=== PATIENT | male | born 1955 | race Hispanic/Latino ===

== ENCOUNTER 2017-05-08 20:27 | Emergency (ER) | payer MEDICAID ==
[2017-05-08 20:35] VITALS: BMI 28.2
[2017-05-08 20:39] VITALS: RESP 18; TEMP 97.9
[2017-05-08 20:58] LABS: ADD MANUAL DIFF? NO
--- NOTE | 2017-05-08 21:07 | ED PDOC ---
Arrival/HPI - General Chief Complaint: Chest Pain Time Seen by Provider: 05/08/17 20:28 Historian: Patient - History of Present Illness Narrative History of Present Illness (Text): 05/08/17 20:40 Zane Boo is a 61 year old male, whose past medical history includes hydrocephalus and DVT, who presents to the Emergency department complaining of chest pain. Patient states he was work earlier today when he began experiencing left-sided chest pain. Patient states chest pain is still present and denies any fever, chills, shortness of breath, nausea, vomiting, diarrhea, urinary symptoms, back pain, neck pain, headache, dizziness, or any other complaints. Time/Duration: Other (today) Symptom Onset: Gradual Symptom Course: Unchanged Activities at Onset: Light Context: Work Past Medical History - Provider Review Nursing Documentation Reviewed: Yes - Cardiac Hx Cardiac Disorders: Yes - Pulmonary Hx Respiratory Disorders: No - Neurological Hx Neurological Disorder: No - HEENT Hx HEENT Disorder: No - Renal Hx Renal Disorder: No - Endocrine/Metabolic Hx Endocrine Disorders: No - Hematological/Oncological Hx Blood Disorders: No - Integumentary Hx Dermatological Disorder: Yes (RIGHT LEG DVT) - Musculoskeletal/Rheumatological Hx Musculoskeletal Disorders: Yes (DVT RIGHT CALF) Hx Falls: No - Gastrointestinal Hx Gastrointestinal Disorders: Yes (HEMORRHOIDS WITH HEMORRHOIDECTOMY) - Genitourinary/Gynecological Hx Genitourinary Disorders: No (HYDROCOELE) - Psychiatric Hx Psychophysiologic Disorder: Yes (OCCASIONALLY DRINKS) Hx Anxiety: No Hx Substance Use: No - Surgical History Other/Comment: colonoscopy-POLYPS REMOVED - Anesthesia Hx Anesthesia Reactions: No Hx Malignant Hyperthermia: No - Suicidal Assessment Feels Threatened In Home Enviroment: No Family/Social History - Physician Review Nursing Documentation Reviewed: Yes Family/Social History: No Known Family HX Smoking Status: Never Smoked Hx Alcohol Use: No Hx Substance Use: No Allergies/Home Meds Allergies/Adverse Reactions: Allergies No Known Allergies Allergy (Verified 05/08/17 21:03) Home Medications: Home Meds Medication Instructions Recorded Confirmed Folic Acid 1 mg PO DAILY 01/21/17 01/23/17 Warfarin [Coumadin] 7.5 mg PO DAILY 01/21/17 01/23/17 Review of Systems - Physician Review All systems were reviewed & negative as marked: Yes - Review of Systems Constitutional: Normal. absent: Fevers Eyes: Normal ENT: Normal Respiratory: Normal. absent: SOB, Cough Cardiovascular: Chest Pain Gastrointestinal: Normal. absent: Abdominal Pain, Diarrhea, Nausea, Vomiting Genitourinary Male: Normal. absent: Dysuria, Frequency, Hematuria, Urinary Output Changes Musculoskeletal: Normal. absent: Back Pain, Neck Pain Skin: Normal. absent: Rash Neurological: Normal. absent: Headache, Dizziness Endocrine: Normal Hemo/Lymphatic: Normal Psychiatric: Normal Physical Exam Vital Signs Reviewed: Yes Vital Signs Temp Pulse Resp BP Pulse Ox 05/08/17 23:48 62 18 115/81 97 05/08/17 20:35 97.9 F 64 18 104/56 L 99 Temperature: Afebrile Blood Pressure: Normal Pulse: Regular Respiratory Rate: Normal Appearance: Positive for: Well-Appearing, Non-Toxic, Comfortable Pain Distress: None Mental Status: Positive for: Alert and Oriented X 3 - Systems Exam Head: Present: Atraumatic, Normocephalic Pupils: Present: PERRL Extroacular Muscles: Present: EOMI Conjunctiva: Present: Normal Mouth: Present: Moist Mucous Membranes Neck: Present: Normal Range of Motion Respiratory/Chest: Present: Clear to Auscultation, Good Air Exchange. No: Respiratory Distress, Accessory Muscle Use Cardiovascular: Present: Regular Rate and Rhythm, Normal S1, S2. No: Murmurs Abdomen: Present: Normal Bowel Sounds. No: Tenderness, Distention, Peritoneal Signs Back: Present: Normal Inspection Upper Extremity: Present: Normal Inspection. No: Cyanosis, Edema Lower Extremity: Present: Normal Inspection. No: Edema Neurological: Present: GCS=15, CN II-XII Intact, Speech Normal Skin: Present: Warm, Dry, Normal Color. No: Rashes Psychiatric: Present: Alert, Oriented x 3, Normal Insight, Normal Concentration Medical Decision Making ED Course and Treatment: 05/08/17 20:40 Impression: 61 year old male complaining of left-sided chest pain. Plan: -- EKG -- Chest X-ray -- Labs, cardiac enzymes, D-dimer -- Urinalysis -- Reassess and disposition Prior Visits: Notes and results from previous visits were reviewed. On 01/21/2017, pt was seen in the Emergency department s/p fall with light- headedness. Pt was admitted to the hospital for further evaluation. Progress Notes: Reviewed EKG, NSR at [address]-segment elevations or depressions, no T-wave inversions, normal intervals. 05/08/17 23:06 Reviewed radiology, Chest X-ray shows no active disease. 05/09/17 00:00 On re-evaluation, the patient feels better and is in no acute distress. I have discussed the results and plan with the patient, who expresses understanding. Patient in agreement with plan to discharged home. Patient is stable for discharge. Patient was instructed to follow up with physician/clinic in 1-2 days or return if symptoms worsen or new concerning symptoms arise. - Lab Interpretations Lab Results: 05/08/17 20:47 05/08/17 20:47 Lab Results 05/08/17 20:47: Sodium 135, Potassium 4.5, Chloride 102, Carbon Dioxide 27, Anion Gap 11, BUN 28 H, Creatinine 1.4, Est GFR ( Amer) > 60, Est GFR ( Non-Af Amer) 52, Random Glucose 106, Calcium 8.6, Magnesium 2.1, Total Bilirubin 0.7, AST 44, ALT 52, Alkaline Phosphatase 65, Lactate Dehydrogenase 426, Total Creatine Kinase 472 H, CK-MB (CK-2) 5.0 H, CK-MB (CK-2) % 1.1 L, Troponin I < 0.01, Total Protein 6.8, Albumin 3.8, Globulin 3.0, Albumin/ Globulin Ratio 1.3 05/08/17 20:47: PT 31.9 H*, INR 2.95 H, APTT 38.8 H, D-Dimer, Quantitative 0.19 05/08/17 20:47: WBC 7.8, RBC 4.87, Hgb 14.9, Hct 43.7, MCV 89.7, MCH 30.6, MCHC 34.1, RDW 13.3, Plt Count 233, MPV 8.8, Gran % 61.1, Lymph % (Auto) 24.6, [place] % (Auto) 10.1 H, Eos % (Auto) 3.6, Baso % (Auto) 0.6, Gran # 4.78, Lymph # 1.9, [place] # 0.8 H, Eos # 0.3, Baso # 0.05 I have reviewed the lab results: Yes - RAD Interpretation Radiology Orders: 05/08/17 20:41 CHEST PORTABLE [RAD] Stat Honest [employer] Member: ED Physician - EKG Interpretation Interpreted by ED Physician: Yes Type: 12 lead EKG - Scribe Statement The provider has reviewed the documentation as recorded by the Lorneibelton Neal All medical record entries made by the Lorneibe were at my direction and personally dictated by me. I have reviewed the chart and agree that the record accurately reflects my personal performance of the history, physical exam, medical decision making, and the department course for this patient. I have also personally directed, reviewed, and agree with the discharge instructions and disposition. Disposition/Present on Arrival - Present on Arrival Any Indicators Present on Arrival: No History of DVT/PE: No History of Uncontrolled Diabetes: No Urinary Catheter: No History of Decub. Ulcer: No History Surgical Site Infection Following: None - Disposition Have Diagnosis and Disposition been Completed?: Yes Diagnosis: Chest pain Disposition: HOME/ ROUTINE Disposition Time: 00:00 Condition: GOOD Discharge Instructions (ExitCare): Chest Pain (ED) Referrals: Ty Gutierrez, DO [Primary Care Provider] - Follow up with primary
[2017-05-08 21:10] LABS: BASO # 0.05 K/mm3 (0.0-2.0); BASO % 0.6 % (0.0-3.0); EOS # 0.3 (0.0-0.7); EOS % 3.6 % (1.5-5.0); GRAN # 4.78 (1.4-6.5); GRAN % 61.1 % (50.0-68.0); HEMATOCRIT 43.7 % (42.0-52.0); LYMPH # 1.9 (1.2-3.4); LYMPH % 24.6 % (22.0-35.0); MEAN CELL VOLUME 89.7 fL (80.0-105.0); MEAN CORPUSCULAR HEMOGLOBIN 30.6 pg (25.0-35.0); MEAN CORPUSCULAR HGB CONC 34.1 g/dl (31.0-37.0); MEAN PLATELET VOLUME 8.8 fl (7.0-11.0); MONO # 0.8 (0.1-0.6); MONO % 10.1 % (1.0-6.0); PLATELET COUNT 233 10^3/uL (120.0-450.0); RED CELL DISTRIBUTION WIDTH 13.3 % (11.5-14.5); WHITE BLOOD COUNT 7.8 10^3/ul (4.5-11.0)
[2017-05-08 21:13] LABS: ALB/GLOB RATIO 1.3 (1.1-1.8); ALKALINE PHOSPHATASE 65 U/L (38-133); ALT/SGPT 52 U/L (7-56); AST/SGOT 44 U/L (15-59); BILIRUBIN,TOTAL 0.7 mg/dL (0.2-1.3); BLOOD UREA NITROGEN 28 mg/dL (7-21); CALCIUM 8.6 mg/dL (8.4-10.5); CARBON DIOXIDE 27 mmol/L (21-33); CHLORIDE 102 mmol/L (98-107); GFR AFRICAN-AMERICAN > 60; GLUCOSE,RANDOM 106 mg/dL (70-110); MAGNESIUM 2.1 mg/dL (1.7-2.2); POTASSIUM 4.5 mmol/L (3.6-5.0); SODIUM 135 mmol/L (132-148); TOTAL PROTEIN 6.8 g/dL (5.8-8.3)
[2017-05-08 21:19] LABS: INR 2.95 (0.93-1.08); PARTIAL THROMBOPLASTIN TIME 38.8 Seconds (23.7-30.8)
[2017-05-08 21:32] LABS: D DIMER 0.19 mg/L FEU (0-0.50)
[2017-05-08 21:39] LABS: TROPONIN I < 0.01 ng/mL
[2017-05-08 23:49] VITALS: BP 115/81; PULSE 62; O2SAT 97
--- NOTE | 2017-05-09 08:15 | RAD ---
HISTORY: Chest pain COMPARISON: 01/21/2017 FINDINGS: LUNGS: The lungs are clear. PLEURA: No significant pleural effusion identified, no pneumothorax apparent. CARDIOVASCULAR: Normal. OSSEOUS STRUCTURES: No significant abnormalities. VISUALIZED UPPER ABDOMEN: Normal. OTHER FINDINGS: None. IMPRESSION: No active pulmonary disease.
--- NOTE | 2017-05-09 10:42 | CARD ---
APPROVED REPORT EKG Measurement Heart [id number] <Conclusion> Normal sinus rhythm Normal ECG No change
== END 2017-05-08 23:59 | disposition home or self-care (01) ==
LOC: ED 20:27
DX: R07.9 Chest pain, unspecified (principal)

== ENCOUNTER 2017-09-02 14:01 | Emergency (ER) | payer SELFPAY ==
[2017-09-02 14:09] VITALS: BMI 26.0
[2017-09-02 14:10] VITALS: RESP 18; TEMP 97.9
[2017-09-02] MEDS ORDERED: Sodium Chloride 0.9% 1,000 ML IV STA (15:02)
--- NOTE | 2017-09-02 15:09 | ED PDOC ---
Arrival/HPI - General Historian: Patient - History of Present Illness Time/Duration: < week Symptom Onset: Sudden Symptom Course: Improving Quality: Other (lightheadedness ) Severity Level: Moderate Activities at Onset: Light Context: Walking <KANE WIN - Last Filed: 09/02/17 19:30> <Iván Blanco - Last Filed: 09/02/17 20:28> - General Chief Complaint: Dizziness/Lightheaded Time Seen by Provider: 09/02/17 14:57 - History of Present Illness Narrative History of Present Illness (Text): 09/02/17 15:03 61yo M with PMH Hydrocephalus and RLE DVT (2015, on Coumadin) who presents to emergency department s/p dizziness and fall with hip pain. Pt is unsure if this occurred yesterday or the day before, but he states that he was walking, felt dizzy and felt onto this R side. Denies LOC or head trauma. Pt states he 's had a prior episode similar to this but cannot recall when it was exactly. pt states his hydrocephalus is congenital, but he doesn't have any shunts for it yet. Pt also denies fevers, chills, n/v/d, chest pain, palpitations, headaches, changes in vision/hearing, or neck pain. PMD: Dr. Gutierrez (KANE WIN) Past Medical History - Provider Review Nursing Documentation Reviewed: Yes - Infectious Disease Hx of Infectious Diseases: None - Cardiac Hx Cardiac Disorders: Yes Other/Comment: R leg DVT - Pulmonary Hx Respiratory Disorders: No - Neurological Hx Dizziness: Yes (w/ pre-syncope) Other/Comment: hydrocephalus w/o shunt - HEENT Hx HEENT Disorder: No - Renal Hx Renal Disorder: No - Endocrine/Metabolic Hx Endocrine Disorders: No - Hematological/Oncological Hx Blood Disorders: No - Musculoskeletal/Rheumatological Hx Musculoskeletal Disorders: Yes Hx Falls: Yes - Gastrointestinal Hx Gastrointestinal Disorders: Yes (HEMORRHOIDS WITH HEMORRHOIDECTOMY) - Genitourinary/Gynecological Hx Genitourinary Disorders: Yes (HYDROCOELE) - Psychiatric Hx Psychophysiologic Disorder: Yes (OCCASIONALLY DRINKS) Hx Anxiety: No Hx Substance Use: No - Surgical History Other/Comment: colonoscopy-POLYPS REMOVED - Anesthesia Hx Anesthesia: Yes Hx Anesthesia Reactions: No Hx Malignant Hyperthermia: No - Suicidal Assessment Feels Threatened In Home Enviroment: No <QUIRNIOKANE ARRIETA - Last Filed: 09/02/17 19:30> Family/Social History - Physician Review Nursing Documentation Reviewed: Yes Family/Social History: No Known Family HX Smoking Status: Never Smoked Hx Alcohol Use: Yes (occasional ) Hx Substance Use: No <QUIRINOKANE SOLORZANO - Last Filed: 09/02/17 19:30> Allergies/Home Meds <QUIRINOKANE SOLORZANO - Last Filed: 09/02/17 19:30> <Iván Blanco - Last Filed: 09/02/17 20:28> Allergies/Adverse Reactions: Allergies No Known Allergies Allergy (Verified 05/08/17 21:03) Home Medications: Home Meds Medication Instructions Recorded Confirmed Folic Acid 800 mg PO DAILY 01/21/17 09/02/17 Warfarin [Coumadin] 4 mg PO DAILY 01/21/17 09/02/17 Lisinopril [Zestril] 40 mg PO DAILY 09/02/17 09/02/17 Review of Systems - Physician Review All systems were reviewed & negative as marked: Yes - Review of Systems Constitutional: Normal. absent: Fatigue, Weight Change, Fevers Eyes: Normal. absent: Vision Changes ENT: Normal. absent: Hearing Changes, Tinnitus Respiratory: absent: SOB, Cough Cardiovascular: absent: Chest Pain, Palpitations, Edema, Calf Pain, Orthopnea, Syncope Gastrointestinal: absent: Abdominal Pain Genitourinary Male: absent: Dysuria, Frequency, Hematuria Musculoskeletal: Other (R hip pain) Neurological: Dizziness. absent: Headache, Focal Weakness, Gait Changes, Speech Changes, Facial Droop, Disequilibrium, Seizure <QUIRINOKANE SOLORZANO - Last Filed: 09/02/17 19:30> Physical Exam Vital Signs Reviewed: Yes Blood Pressure: Hypotensive Respiratory Rate: Normal Appearance: Positive for: Well-Appearing Pain Distress: None Mental Status: Positive for: Alert and Oriented X 3 - Systems Exam Head: Present: Atraumatic, Other (wide forehead ) Pupils: Present: PERRL Extroacular Muscles: Present: EOMI Conjunctiva: Present: Normal Mouth: Present: Moist Mucous Membranes Neck: Present: Normal Range of Motion. No: Meningeal Signs, MIDLINE TENDERNESS Respiratory/Chest: Present: Clear to Auscultation, Good Air Exchange. No: Respiratory Distress, Accessory Muscle Use, Wheezes Cardiovascular: Present: Regular Rate and Rhythm, Normal S1, S2. No: Murmurs Abdomen: Present: Normal Bowel Sounds. No: Tenderness, Distention Back: Present: Normal Inspection. No: CVA Tenderness, Midline Tenderness Upper Extremity: Present: Normal Inspection, Normal ROM, Neurovascularly Intact. No: Edema, Tenderness, Temperature Abnormalties Lower Extremity: Present: Normal Inspection, Normal ROM, Tenderness (R hip, mild ), Neurovascularly Intact. No: Edema, CALF TENDERNESS, Temperature Abnormalties Neurological: Present: Speech Normal, Motor Func Grossly Intact, Normal Sensory Function. No: Gait Normal (moderate ataxia) Skin: Present: Warm, Dry Psychiatric: Present: Alert, Oriented x 3, Other (memory loss and mild confusion ) <KANE WIN - Last Filed: 09/02/17 19:30> Vital Signs Temp Pulse Resp BP Pulse Ox 09/02/17 14:09 97.9 F 85 18 96/61 L 96 Medical Decision Making Reassessment Condition: Re-examined, Improved - Critical Care Critical Care Minutes: 30 minutes - Lab Interpretations I have reviewed the lab results: Yes <KANE WIN - Last Filed: 09/02/17 19:30> Reassessment Condition: Re-examined, Improved - Critical Care Critical Care Minutes: 30 minutes - Lab Interpretations I have reviewed the lab results: Yes <Iván Blanco - Last Filed: 09/02/17 20:28> ED Course and Treatment: 09/02/17 15:22 Impression: 61yo M PMH hydrocephalus and DVT presenting s/p pre-syncope and fall with R hip pain Plan: - Reassess and disposition - CT head - Hip XRay - Labs - UA - 1L NS bolus Progress Notes: Orthostatic VS done by resident: Laying down: BP 92/51, HR 66 Sitting: BP 93/51, HR 75 Standing: BP 68/48, HR 105 09/02/17 15:24 EKG: Ordered, reviewed, and independently interpreted the EKG. Rate : 65 BPM Rhythm : NSR Interpretation : No ST-segment elevations or depressions, no T-wave inversions, normal intervals. 09/02/17 15:27 From January admission for similar symptoms: - carotid and vertebral doppler - bilateral 20-39% proximal ICA stenosis and antegrade flow in both vetebral arteries. No significant changes from prior year. - Head CT - Severe hydrocephalus - lateral and 3rd ventricles. 4th ventricle normal in zise. 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 No mass effect. - Brain MRI - L frontal sinusitis. Moderate to severe hydrocephalus lateral and 3rd ventricles. Periventricular hyperintense T2 and FLAIR represents edema and chronic white ischemic changes - Echo with normal EF and no valvular changes - Pt was supposed to follow up Dr. Lcokwood for elective shunt, but pt cannot recall if he did or not 09/02/17 16:[address] Gutierrez, states pt appears is at baseline. Currently awaiting CT Head results. If CT Head shows no changes, pt will follow up with Dr. Gutierrez as an outpatient. 09/02/17 17:01 reassessment: s/p 1L NS bolus; BP 103/71, HR 61. 09/02/17 18:02 Radiographs of the pelvis and bilateral hips Creator : Javier Duncan MD IMPRESSION: Degenerate changes seen the bilateral sacroiliac and hip joints without acute fracture throughout either hip joint or the pelvic ring. No dislocation. 09/02/17 18:39 CT HEAD WITHOUT CONTRAST Creator : Iván Wright FINDINGS: HEMORRHAGE: No intracranial hemorrhage. BRAIN: Again seen is severe hydrocephalus associated with partial effacement of the sulci. No evidence of significant midline shift. VENTRICLES: The lateral and 3rd ventricles are markedly dilated suggestive of hydrocephalus. . The 4th ventricle is normal in size. CALVARIUM: Unremarkable. PARANASAL SINUSES: Unremarkable as visualized. No significant inflammatory changes. MASTOID AIR CELLS: Unremarkable as visualized. No inflammatory changes. OTHER FINDINGS: None IMPRESSION: Re- demonstration of moderate to severe obstructive/noncommunicating hydrocephalus involving the lateral and 3rd ventricle. The 4th ventricle is normal in size. No evidence of acute intracranial hemorrhage or significant midline shift. 09/02/17 19:12 Reassessment: pt was walked with resident, and was ambulating steadily without assistance. (KANE WIN) A 61 year old male presents for evaluation after fall. Patient complaining of dizziness and right hip pain. In agreement with resident note, which includes further HPI details. Patient was seen and evaluated with resident, came up with plan and treatment together. discused case with dr. Gutierrez who agrees with plan, pt was given gentle IV hydration and shows no significant progression of his hydrocephalus requiring urgent N/S evaluation. 09/02/17 20:27 (Iván Blanco) - Lab Interpretations Lab Results: 09/02/17 15:00 09/02/17 15:00 Lab Results 09/02/17 15:00: Sodium 137, Potassium 4.2, Chloride 102, Carbon Dioxide 28, Anion Gap 11, BUN 29 H, Creatinine 1.0, Est GFR ( Amer) > 60, Est GFR ( Non-Af Amer) > 60, Random Glucose 92, Calcium 8.7, Total Bilirubin 0.9, AST 42, ALT 48, Alkaline Phosphatase 55, Total Protein 6.0, Albumin 3.5, Globulin 2.6, Albumin/Globulin Ratio 1.3 09/02/17 15:00: PT 32.9 H*, INR 3.05 H 09/02/17 15:00: WBC 8.8, RBC 4.51, Hgb 13.6 L, Hct 39.9 L, MCV 88.5, MCH 30.2, MCHC 34.1, RDW 13.5, Plt Count 214, MPV 8.7, Gran % 70.8 H, Lymph % (Auto) 15.4 L, [place] % (Auto) 11.9 H, Eos % (Auto) 1.7, Baso % (Auto) 0.2, Gran # 6.26, Lymph # 1.4, [place] # 1.1 H, Eos # 0.2, Baso # 0.02 - RAD Interpretation Radiology Orders: 09/02/17 14:34 Hip Bi with Pelvis Fall Protocol [HIP MIN 2V W/ PELVIS CIRILO] [RAD] Stat 09/02/17 15:01 HEAD W/O CONTRAST [CT] Stat - Medication Orders Current Medication Orders: Discontinued Medications Sodium Chloride (Sodium Chloride 0.9%) 1,000 mls @ 999 mls/hr IV .Q1H1M STA Stop: 09/02/17 16:02 Last Admin: 09/02/17 15:09 Dose: 999 mls/hr eMAR Start Stop Document 09/02/17 15:09 EQ (Rec: 09/02/17 15:09 EQ [facility] [id number] Intravenous Solution Start Date 09/02/17 Start Time 15:09 <KANE WIN - Last Filed: 09/02/17 19:30> - PA / [employer] / Resident Statement / has reviewed & agrees with the documentation as recorded. MD/DO has examined the patient and agrees with the treatment plan. - Scribe Statement The provider has reviewed the documentation as recorded by the Scribe <Iván Blanco - Last Filed: 09/02/17 20:28> - Scribe Statement Margarita Young Provider Scribe Attestation: All medical record entries made by the Scribe were at my direction and personally dictated by me. I have reviewed the chart and agree that the record accurately reflects my personal performance of the history, physical exam, medical decision making, and the department course for this patient. I have also personally directed, reviewed, and agree with the discharge instructions and disposition. (Iván Blanco) Disposition/Present on Arrival - Present on Arrival Any Indicators Present on Arrival: No History of DVT/PE: Yes History of Uncontrolled Diabetes: No Urinary Catheter: No History of Decub. Ulcer: No History Surgical Site Infection Following: None - Disposition Have Diagnosis and Disposition been Completed?: Yes Disposition Time: 19:17 Patient Plan: Discharge <KANE WIN - Last Filed: 09/02/17 19:30> - Present on Arrival Any Indicators Present on Arrival: No History of DVT/PE: Yes History of Uncontrolled Diabetes: No Urinary Catheter: No History of Decub. Ulcer: No - Disposition Have Diagnosis and Disposition been Completed?: Yes Patient Plan: Discharge <Iván Blanco - Last Filed: 09/02/17 20:28> - Disposition Diagnosis: Near syncope, Hydrocephalus Disposition: HOME/ ROUTINE Patient Problems: Current Active Problems Problem Status Onset Contusion of hip, right Acute Hydrocephalus Acute Near syncope Acute Condition: GOOD Discharge Instructions (ExitCare): Near Syncope (ED) Additional Instructions: - please take the pain meds as prescribed when needed - continue home meds - when getting up, take your time and slowly sit up first, then stand up. If at anytime you feel dizzy, please sit down to avoid falling - please follow up with your PMD - if at anytime you feel dizzy, numbness/tingling, weakness, facial paralysis or droop, slurring of speech or experience any changes in vision/hearing, please return to emergency department for workup Prescriptions: Ibuprofen [Motrin] 400 mg PO Q6 PRN #12 tab PRN Reason: Pain, Mild (1-3) Referrals: Ty Gutierrez DO [Primary Care Provider] - Follow up with primary Forms: [employer] (Lebanese)
[2017-09-02 15:16] LABS: BASO # 0.02 K/mm3 (0.0-2.0); BASO % 0.2 % (0.0-3.0); EOS # 0.2 (0.0-0.7); EOS % 1.7 % (1.5-5.0); GRAN # 6.26 (1.4-6.5); GRAN % 70.8 % (50.0-68.0); HEMATOCRIT 39.9 % (42.0-52.0); LYMPH # 1.4 (1.2-3.4); LYMPH % 15.4 % (22.0-35.0); MEAN CELL VOLUME 88.5 fl (80.0-105.0); MEAN CORPUSCULAR HEMOGLOBIN 30.2 pg (25.0-35.0); MEAN CORPUSCULAR HGB CONC 34.1 g/dl (31.0-37.0); MEAN PLATELET VOLUME 8.7 fl (7.0-11.0); MONO # 1.1 (0.1-0.6); MONO % 11.9 % (1.0-6.0); RED CELL DISTRIBUTION WIDTH 13.5 % (11.5-14.5); WHITE BLOOD COUNT 8.8 10^3/ul (4.5-11.0)
[2017-09-02 15:25] LABS: INR 3.05 (0.93-1.08)
[2017-09-02 15:35] LABS: ALB/GLOB RATIO 1.3 (1.1-1.8); ALKALINE PHOSPHATASE 55 U/L (38-126); ALT/SGPT 48 U/L (7-56); AST/SGOT 42 U/L (17-59); BILIRUBIN,TOTAL 0.9 mg/dL (0.2-1.3); BLOOD UREA NITROGEN 29 mg/dL (7-21); CALCIUM 8.7 mg/dL (8.4-10.5); CARBON DIOXIDE 28 mmol/L (21-33); CHLORIDE 102 mmol/L (98-107); GFR AFRICAN-AMERICAN > 60; GLUCOSE,RANDOM 92 mg/dL (70-110); POTASSIUM 4.2 mmol/L (3.6-5.0); SODIUM 137 mmol/L (132-148)
--- NOTE | 2017-09-02 16:55 | RAD ---
PROCEDURE: Radiographs of the pelvis and bilateral hips HISTORY: s/p fall COMPARISON: None. FINDINGS: BONES: No fracture of the left or right hip is appreciated or of the pelvic ring in general. No suspicious lytic or blastic change. JOINTS: Degenerate changes seen the bilateral sacroiliac and hip joints. No dislocation or subluxation bilaterally. Pubic symphysis: Unremarkable. SOFT TISSUES: Incidental note is made calcifications at the right hemiscrotum. OTHER FINDINGS: None. IMPRESSION: Degenerate changes seen the bilateral sacroiliac and hip joints without acute fracture throughout either hip joint or the pelvic ring. No dislocation.
--- NOTE | 2017-09-02 18:25 | CT ---
PROCEDURE: CT HEAD WITHOUT CONTRAST. HISTORY: pre-syncope, s/p fall COMPARISON: Comparison is made to the previous study dated 01/21/2017 TECHNIQUE: Axial computed tomography images were obtained through the head/brain without intravenous contrast. Radiation dose: Total exam DLP = 930.49 mGy-cm. This CT exam was performed using one or more of the following dose reduction techniques: Automated exposure control, adjustment of the mA and/or kV according to patient size, and/or use of iterative reconstruction technique. FINDINGS: HEMORRHAGE: No intracranial hemorrhage. BRAIN: Again seen is severe hydrocephalus associated with partial effacement of the sulci. No evidence of significant midline shift. VENTRICLES: The lateral and 3rd ventricles are markedly dilated suggestive of hydrocephalus. . The 4th ventricle is normal in size. CALVARIUM: Unremarkable. PARANASAL SINUSES: Unremarkable as visualized. No significant inflammatory changes. MASTOID AIR CELLS: Unremarkable as visualized. No inflammatory changes. OTHER FINDINGS: None IMPRESSION: Re- demonstration of moderate to severe obstructive/noncommunicating hydrocephalus involving the lateral and 3rd ventricle. The 4th ventricle is normal in size. No evidence of acute intracranial hemorrhage or significant midline shift.
[2017-09-02 21:30] VITALS: BP 118/74; PULSE 61; O2SAT 99
--- NOTE | 2017-09-03 09:44 | CARD ---
APPROVED REPORT EKG Measurement Heart [id number] <Conclusion> Normal sinus rhythm Normal ECG
== END 2017-09-02 19:55 | disposition home or self-care (01) ==
LOC: ED 14:01
DX: R55 Syncope and collapse (principal); G91.9 Hydrocephalus, unspecified
CPT/HCPCS: 70450; 73521; 80053; 85025; 85610; 93005; 99285; J7040

== ENCOUNTER 2017-09-16 09:52 | Emergency (ER) | payer OTHER ==
[2017-09-16 09:52] VITALS: BMI 26.0
[2017-09-16 10:30] VITALS: RESP 16; TEMP 98.6; O2SAT 97
--- NOTE | 2017-09-16 10:57 | ED PDOC ---
Arrival/HPI - General Chief Complaint: Trauma Time Seen by Provider: 09/16/17 10:47 Historian: Patient - History of Present Illness Narrative History of Present Illness (Text): Pt states that [id number] days ago he fell landing on his buttock.Now with R buttock pain and discoloration to the R buttock.On further review of old chart it is noted that the patient was seen on 09/02 for similiar complaints.Had complete w/u at that time inclusive of head CT and radiographs of the R hip.Pt now is concerned about discoloration to R buttock and RLE,that he may have a recurrance of clot 09/16/17 10:56 09/16/17 11:04 09/16/17 12:06 Front/Back of Body, Lg (Color): 1 - ecchymottic Time/Duration: 1 week Symptom Course: Improving Past Medical History - Provider Review Nursing Documentation Reviewed: Yes - Travel History Have you recently traveled outside [place] w/in the past 3 mons?: No - Patient History Narrative Patient History: pos prior DVT,prior hydrocepghalus with shunt - Infectious Disease Hx of Infectious Diseases: None - Tetanus Immunization Tetanus Immunization: Unknown - Cardiac Hx Cardiac Disorders: Yes Other/Comment: R leg DVT - Pulmonary Hx Respiratory Disorders: No - Neurological Hx Dizziness: Yes (w/ pre-syncope) Other/Comment: hydrocephalus w/o shunt - HEENT Hx HEENT Disorder: No - Renal Hx Renal Disorder: No - Endocrine/Metabolic Hx Endocrine Disorders: No - Hematological/Oncological Hx Blood Disorders: No - Integumentary Hx Dermatological Disorder: Yes (RIGHT LEG DVT) - Musculoskeletal/Rheumatological Hx Musculoskeletal Disorders: Yes Hx Falls: Yes - Gastrointestinal Hx Gastrointestinal Disorders: Yes (HEMORRHOIDS WITH HEMORRHOIDECTOMY) - Genitourinary/Gynecological Hx Genitourinary Disorders: Yes (HYDROCOELE) - Psychiatric Hx Psychophysiologic Disorder: Yes (OCCASIONALLY DRINKS) Hx Anxiety: No Hx Substance Use: No - Surgical History Other/Comment: colonoscopy-POLYPS REMOVED - Anesthesia Hx Anesthesia: Yes Hx Anesthesia Reactions: No Hx Malignant Hyperthermia: No - Suicidal Assessment Feels Threatened In Home Enviroment: No Family/Social History Family/Social History: No Known Family HX Smoking Status: Never Smoked Hx Alcohol Use: Yes (occasional ) Hx Substance Use: No Allergies/Home Meds Allergies/Adverse Reactions: Allergies No Known Allergies Allergy (Verified 05/08/17 21:03) Home Medications: Home Meds Medication Instructions Recorded Confirmed Folic Acid 800 mg PO DAILY 01/21/17 09/02/17 Warfarin [Coumadin] 4 mg PO DAILY 01/21/17 09/02/17 Lisinopril [Zestril] 40 mg PO DAILY 09/02/17 09/02/17 Review of Systems - Physician Review All systems were reviewed & negative as marked: Yes Physical Exam Vital Signs Reviewed: Yes Vital Signs Temp Pulse Resp BP Pulse Ox 09/16/17 10:10 98.6 F 65 16 113/68 97 Temperature: Afebrile Blood Pressure: Normal Pulse: Regular Respiratory Rate: Normal Appearance: Positive for: Well-Appearing Pain Distress: Mild Medical Decision Making - RAD Interpretation Narrative RAD Interpretations (Text): Doppler US RLE-No DVT 09/16/17 12:09 Radiology Orders: 09/16/17 11:00 DUPLEX LOWER EXTRM VEIN RIGHT [US] Stat Disposition/Present on Arrival - Present on Arrival Any Indicators Present on Arrival: Yes History of DVT/PE: Yes History of Uncontrolled Diabetes: No Urinary Catheter: No History of Decub. Ulcer: No History Surgical Site Infection Following: None - Disposition Have Diagnosis and Disposition been Completed?: Yes Diagnosis: Multiple leg contusions Disposition: HOME/ ROUTINE Disposition Time: 11:58 Patient Plan: Discharge Patient Problems: Current Active Problems Problem Status Onset Multiple leg contusions Acute Condition: GOOD Discharge Instructions (ExitCare): Hip Contusion (ED) Print Language: COMORAN Referrals: Ty Gutierrez DO [Primary Care Provider] - Follow up with primary Forms: Trunk Archive ([place]an)
[2017-09-16 12:12] VITALS: BP 112/69; PULSE 58
--- NOTE | 2017-09-16 17:58 | US ---
PROCEDURE: Right lower extremity venous US HISTORY: Leg pain and swelling. Evaluate for DVT. PHYSICIAN(S): Mu Palma M.D. TECHNIQUE: Duplex sonography and color-flow Doppler with graded compression were used to evaluate the deep venous system of the right lower extremity. FINDINGS: The visualized deep venous system of the right lower extremity is sonographically normal and compressible. Normal waveforms and augmentation are seen. There is no sonographic evidence for deep venous thrombosis in the visualized segments of the right lower extremity. IMPRESSION: 1. No sonographic evidence for deep venous thrombosis in the visualized segments of the right lower extremity.
== END 2017-09-16 12:08 | disposition home or self-care (01) ==
LOC: ED 09:52
DX: S80.11XA Contusion of right lower leg, initial encounter (principal); W19.XXXA Unspecified fall, initial encounter; Z79.01 Long term (current) use of anticoagulants

== ENCOUNTER 2018-02-24 20:52 | Emergency (ER) | payer MEDICAID ==
[2018-02-24 21:07] VITALS: BMI 26.6
[2018-02-24 21:08] VITALS: RESP 18
--- NOTE | 2018-02-24 21:49 | ED PDOC ---
Arrival/HPI - General Chief Complaint: Trauma Time Seen by Provider: 02/24/18 21:42 Historian: Patient - History of Present Illness Narrative History of Present Illness (Text): 02/24/18 21:49 A 62 year old male, whose past medical history includes hydrocephalus, presents to the emergency department complaining of fall while at work today. Patient reports he has been experiencing double vision for the past 2 weeks. States he did not plan on seeking evaluation for double vision issue until fall occurred. Patient denies any pain s/p fall, or any other complaints at this time. PMD: Dr. Horne Past Medical History - Provider Review Nursing Documentation Reviewed: Yes - Infectious Disease Hx of Infectious Diseases: None - Tetanus Immunization Tetanus Immunization: Unknown - Cardiac Hx Cardiac Disorders: Yes Other/Comment: R leg DVT - Pulmonary Hx Respiratory Disorders: No - Neurological Hx Dizziness: Yes (w/ pre-syncope) Other/Comment: hydrocephalus w/o shunt - HEENT Hx HEENT Disorder: No - Renal Hx Renal Disorder: No - Endocrine/Metabolic Hx Endocrine Disorders: No - Hematological/Oncological Hx Blood Disorders: No - Integumentary Hx Dermatological Disorder: Yes (RIGHT LEG DVT) - Musculoskeletal/Rheumatological Hx Musculoskeletal Disorders: Yes Hx Falls: Yes - Gastrointestinal Hx Gastrointestinal Disorders: Yes (HEMORRHOIDS WITH HEMORRHOIDECTOMY) - Genitourinary/Gynecological Hx Genitourinary Disorders: Yes (HYDROCOELE) - Psychiatric Hx Psychophysiologic Disorder: Yes (OCCASIONALLY DRINKS) Hx Anxiety: No Hx Substance Use: No - Surgical History Other/Comment: colonoscopy-POLYPS REMOVED - Anesthesia Hx Anesthesia: Yes Hx Anesthesia Reactions: No Hx Malignant Hyperthermia: No - Suicidal Assessment Feels Threatened In Home Enviroment: No Family/Social History - Physician Review Nursing Documentation Reviewed: Yes Family/Social History: No Known Family HX Smoking Status: Never Smoked Hx Alcohol Use: Yes (occasional ) Hx Substance Use: No Allergies/Home Meds Allergies/Adverse Reactions: Allergies No Known Allergies Allergy (Verified 05/08/17 21:03) Home Medications: Home Meds Medication Instructions Recorded Confirmed Folic Acid 800 mg PO DAILY 01/21/17 09/02/17 Warfarin [Coumadin] 4 mg PO DAILY 01/21/17 09/02/17 Lisinopril [Zestril] 40 mg PO DAILY 09/02/17 09/02/17 Review of Systems - Physician Review All systems were reviewed & negative as marked: Yes - Review of Systems Eyes: Vision Changes (double vision for 2 weeks) Musculoskeletal: absent: Other (patient experiences no pain at this time s/p fall onto backside) Physical Exam Vital Signs Reviewed: Yes Vital Signs Temp Pulse Resp BP Pulse Ox 02/25/18 00:07 98.2 F 66 18 124/89 100 02/24/18 21:07 98.2 F 62 18 115/73 99 Temperature: Afebrile Blood Pressure: Normal Pulse: Regular Respiratory Rate: Normal Appearance: Positive for: Well-Appearing Pain Distress: None Mental Status: Positive for: Alert and Oriented X 3 - Systems Exam Head: Present: Atraumatic, Normocephalic Pupils: Present: PERRL Extroacular Muscles: Present: Other (amblyopia) Conjunctiva: Present: Normal Mouth: Present: Moist Mucous Membranes Neck: Present: Normal Range of Motion Respiratory/Chest: Present: Clear to Auscultation, Good Air Exchange. No: Respiratory Distress, Accessory Muscle Use Cardiovascular: Present: Regular Rate and Rhythm, Normal S1, S2. No: Murmurs Abdomen: Present: Normal Bowel Sounds. No: Tenderness, Distention, Peritoneal Signs Back: Present: Normal Inspection Upper Extremity: Present: Normal Inspection. No: Cyanosis, Edema Lower Extremity: Present: Normal Inspection. No: Edema Neurological: Present: GCS=15, CN II-XII Intact, Speech Normal Skin: Present: Warm, Dry, Normal Color. No: Rashes Psychiatric: Present: Alert, Oriented x 3, Normal Insight, Normal Concentration Medical Decision Making ED Course and Treatment: 02/24/18 21:53 Impression: 62 year old male with double vision problem. Physical exam shows patient has amblyopia; rest of examination is normal. Plan: -- Head & Neck CTA -- Head CT -- Labs -- Reassess and disposition Prior Visits: Notes and results from previous visits were reviewed. Patient was last seen in the emergency department on 09/16/2017 for right buttock pain s/p fall. Patient was d/c home. Progress Notes: 02/24/2018 00:[address] FINDINGS: Brain: Mild atrophy. No intracranial hemorrhage. No mass. No definite edema. Ventricles: Markedly dilated out of proportion to sulci, grossly stable. Bones/joints: No acute fracture. Soft tissues: Unremarkable. Sinuses: Scattered minimal mucosal thickening. Mastoid air cells: No mastoid effusion. Auditory system: Cerumen. Orbits: Unremarkable as visualized. IMPRESSION: Hydrocephalus, grossly stable. Dictator: Chiki Saini MD 02/24/2018 00:49 Head & Neck CTA (Head) IMPRESSION: 1. There is persistence of the origins of the bilateral posterior cerebral arteries. 2. Hypoplastic bilateral P1 segments are visualized. Otherwise, there is no significant arterial stenosis or occlusion on this CTA head study. 3. There is severe hydrocephalus, which is stable. 4. Hypodense edema or gliosis is again visualized within the left temporal lobe. (Neck) IMPRESSION: 1. There is minimal atherosclerosis of the proximal bilateral internal carotid arteries, without significant stenosis or occlusion. 2. There is a mild decrease in caliber or stenosis of the proximal left vertebral artery. 3. There is a subcentimeter hypodense nodule within the right thyroid lobe anteriorly. 4. There is swelling of the right posterior nasopharynx. Clinical correlation is recommended. 5. Incidental/non-acute findings are described above Dictator: Matteo Prakash MD - Lab Interpretations Lab Results: 02/24/18 22:40 02/24/18 22:40 Lab Results 02/24/18 22:40: Sodium 137, Potassium 5.3 H, Chloride 101, Carbon Dioxide 30, Anion Gap 11, BUN 32 H, Creatinine 1.1, Est GFR ( Amer) > 60, Est GFR ( Non-Af Amer) > 60, Random Glucose 94, Calcium 9.0, Total Bilirubin 0.7, AST 33, ALT 33, Alkaline Phosphatase 72, Total Protein 6.7, Albumin 3.5, Globulin 3.1, Albumin/Globulin Ratio 1.1 02/24/18 22:40: PT 13.4 H, INR 1.16 H 02/24/18 22:40: WBC 8.6, RBC 4.66, Hgb 13.9 L, Hct 41.3 L, MCV 88.6, MCH 29.8, MCHC 33.7, RDW 13.7, Plt Count 233, MPV 8.5, Gran % 54.1, Lymph % (Auto) 28.7, [place] % (Auto) 9.9 H, Eos % (Auto) 6.8 H, Baso % (Auto) 0.5, Gran # 4.63, Lymph # (Auto) 2.5, [place] # (Auto) 0.9 H, Eos # (Auto) 0.6, Baso # (Auto) 0.04 I have reviewed the lab results: Yes - RAD Interpretation Radiology Orders: 02/24/18 21:53 CTA HEAD & NECK BUNDLE [CT] Stat HEAD W/O CONTRAST [CT] Stat - Medication Orders Current Medication Orders: Discontinued Medications Sodium Chloride (Sodium Chloride 0.9%) 1,000 mls @ 999 mls/hr IV .Q1H1M STA Stop: 02/25/18 01:10 Last Admin: 02/25/18 00:39 Dose: 999 mls/hr eMAR Start Stop Document 02/25/18 00:39 OCS (Rec: 02/25/18 00:40 OCS [id number]) Intravenous Solution Start Date 02/25/18 Start Time 00:39 End Date 02/25/18 End time 01:40 Total Infusion Time 61 - 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 - Scribe Statement The provider has reviewed the documentation as recorded by the Javon Briseno Provider Scribe Attestation: All medical record entries made by the L[place]ton were at my direction and personally dictated by me. I have reviewed the chart and agree that the record accurately reflects my personal performance of the history, physical exam, medical decision making, and the department course for this patient. I have also personally directed, reviewed, and agree with the discharge instructions and disposition. Disposition/Present on Arrival - Present on Arrival Any Indicators Present on Arrival: No History of DVT/PE: Yes History of Uncontrolled Diabetes: No Urinary Catheter: No History of Decub. Ulcer: No History Surgical Site Infection Following: None - Disposition Have Diagnosis and Disposition been Completed?: Yes Diagnosis: Diplopia, Amblyopia, Hydrocephalus Disposition: HOME/ ROUTINE Disposition Time: 01:49 Patient Plan: Discharge Condition: GOOD Discharge Instructions (ExitCare): Double Vision (DC), Hydrocephalus (DC) Additional Instructions: Mr Boo- You need to see the Neurologist and the Ophthalomologist. You have to see the Neurologist before returning to work. Call first thing this morning. Best- Dr. Viraj Dawkins Referrals: Ashley Horne DO [Primary Care Provider] - Follow up with primary Ramiro Juarez MD [Staff Provider] - Follow up with primary David Grier MD [Staff Provider] - Follow up with primary Forms: [employer] (Thai)
[2018-02-24 22:51] LABS: BASO # 0.04 K/mm3 (0.0-2.0); BASO % 0.5 % (0.0-3.0); EOS # 0.6 (0.0-0.7); EOS % 6.8 % (1.5-5.0); GRAN # 4.63 (1.4-6.5); GRAN % 54.1 % (50.0-68.0); HEMOGLOBIN 13.9 g/dL (14.0-18.0); LYMPH # 2.5 (1.2-3.4); LYMPH % 28.7 % (22.0-35.0); MEAN CELL VOLUME 88.6 fl (80.0-105.0); MEAN CORPUSCULAR HEMOGLOBIN 29.8 pg (25.0-35.0); MEAN CORPUSCULAR HGB CONC 33.7 g/dl (31.0-37.0); MEAN PLATELET VOLUME 8.5 fl (7.0-11.0); MONO # 0.9 (0.1-0.6); MONO % 9.9 % (1.0-6.0); RBC 4.66 10^6/uL (3.5-6.1); RED CELL DISTRIBUTION WIDTH 13.7 % (11.5-14.5); WHITE BLOOD COUNT 8.6 10^3/ul (4.5-11.0)
[2018-02-24 22:58] LABS: ALB/GLOB RATIO 1.1 (1.1-1.8); ALBUMIN 3.5 g/dL (3.0-4.8); ALT/SGPT 33 U/L (7-56); AST/SGOT 33 U/L (17-59); BLOOD UREA NITROGEN 32 mg/dL (7-21); GFR AFRICAN-AMERICAN > 60; GFR NON-AFRICAN AMERICAN > 60
[2018-02-24 23:05] LABS: INR 1.16 (0.93-1.08); PROTHROMBIN TIME 13.4 SECONDS (9.4-12.5)
[2018-02-25 00:08] VITALS: BP 124/89; PULSE 66; TEMP 98.2; O2SAT 100
[2018-02-25] MEDS ORDERED: Sodium Chloride 0.9% 1,000 ML IV STA (00:10)
--- NOTE | 2018-02-25 00:25 | CT ---
EXAM: CT Head Without Intravenous Contrast CLINICAL HISTORY: 62 years old, male; Signs and symptoms; Visual disturbance; Patient HX: HX hydrocephalus without shunt; Additional info: Diplopia and amblyopia TECHNIQUE: Axial computed tomography images of the head/brain without intravenous contrast. All CT scans at this facility use one or more dose reduction techniques, viz.: automated exposure control; ma/kV adjustment per patient size (including targeted exams where dose is matched to indication; i.e. head); or iterative reconstruction technique. Coronal and sagittal reformatted images were created and reviewed. COMPARISON: CT - HEAD W/O CONTRAST 2017-09-02 18:10 FINDINGS: Brain: Mild atrophy. No intracranial hemorrhage. No mass. No definite edema. Ventricles: Markedly dilated out of proportion to sulci, grossly stable. Bones/joints: No acute fracture. Soft tissues: Unremarkable. Sinuses: Scattered minimal mucosal thickening. Mastoid air cells: No mastoid effusion. Auditory system: Cerumen. Orbits: Unremarkable as visualized. IMPRESSION: 1. Hydrocephalus, grossly stable. 2. Incidental/non-acute findings are described above.
--- NOTE | 2018-02-25 00:49 | CT ---
EXAM: CT Angiography Head With Intravenous Contrast CLINICAL HISTORY: The patient age is 62 years old and is male; Signs and symptoms; Visual disturbance; Diplopia; Patient HX: HX hydrocephalies without shunt; Additional info: Diplopia and amblyopia Facility exam id and description: [facility] cta head neck bundle TECHNIQUE: Axial computed tomographic angiography images of the head with intravenous contrast using CT angiography protocol. All CT scans at this facility use one or more dose reduction techniques, viz.: automated exposure control; ma/kV adjustment per patient size (including targeted exams where dose is matched to indication; i.e. head); or iterative reconstruction technique. MIP reconstructed images were created and reviewed. Coronal and sagittal reformatted images were created and reviewed. CONTRAST: 150 mL of omnipaque 350 administered intravenously. COMPARISON: CT - HEAD W/O CONTRAST 2018-02-24 23:20 FINDINGS: Right internal carotid artery: No acute findings. Intracranial segment is patent with no significant stenosis. No aneurysm. Right anterior cerebral artery: No occlusion or significant stenosis. No aneurysm. Right middle cerebral artery: No occlusion or significant stenosis. No aneurysm. Right posterior cerebral artery: There is persistence of the origins of the bilateral posterior cerebral arteries. Hypoplastic bilateral P1 segments are visualized. Otherwise, there is no significant stenosis or occlusion of the posterior cerebral arteries. No aneurysm. Right vertebral artery: No occlusion or significant stenosis. Left internal carotid artery: No acute findings. Intracranial segment is patent with no significant stenosis. No aneurysm. Left anterior cerebral artery: No occlusion or significant stenosis. No aneurysm. Left middle cerebral artery: No occlusion or significant stenosis. No aneurysm. Left posterior cerebral artery: See above. Left vertebral artery: No occlusion or significant stenosis. Basilar artery: No significant stenosis. No occlusion. No aneurysm. Brain: Hypodense edema or gliosis is identified within the left temporal lobe. For further discussion of intracranial findings, refer to the recent CT head report. Ventricles: There is severe hydrocephalus, which is stable. IMPRESSION: 1. There is persistence of the origins of the bilateral posterior cerebral arteries. 2. Hypoplastic bilateral P1 segments are visualized. Otherwise, there is no significant arterial stenosis or occlusion on this CTA head study. 3. There is severe hydrocephalus, which is stable. 4. Hypodense edema or gliosis is again visualized within the left temporal lobe. EXAM: CT Angiography Neck With Intravenous Contrast EXAM DATE/TIME: 02/24/2018 9:53 PM CLINICAL HISTORY: The patient age is 62 years old and is male; Signs and symptoms; Visual disturbance; Diplopia; Patient HX: HX hydrocephalies without shunt; Additional info: Diplopia and amblyopia Facility exam id and description: [facility] cta head neck bundle TECHNIQUE: Axial computed tomographic angiography images of the neck with intravenous contrast using CT angiography protocol. All CT scans at this facility use one or more dose reduction techniques, viz.: automated exposure control; ma/kV adjustment per patient size (including targeted exams where dose is matched to indication; i.e. head); or iterative reconstruction technique. MIP reconstructed images were created and reviewed. Coronal and sagittal reformatted images were created and reviewed. CONTRAST: 150 mL of omnipaque 350 administered intravenously. COMPARISON: CT - HEAD W/O CONTRAST 2018-02-24 23:20 FINDINGS: VASCULATURE: Right common carotid artery: Artifact obscures the proximal right common carotid artery. The remaining right common carotid artery is patent, without significant stenosis or occlusion. Right internal carotid artery: There is minimal atherosclerosis of the proximal bilateral internal carotid arteries, without significant stenosis or occlusion. Right external carotid artery: No occlusion. Right vertebral artery: No occlusion or significant stenosis. Left common carotid artery: No significant stenosis. No dissection or occlusion. Left internal carotid artery: See above. Left external carotid artery: No occlusion. Left vertebral artery: There is a mild decrease in caliber or stenosis of the proximal left vertebral artery. NECK: Bones/joints: There is straightening of the lordotic curvature of the cervical spine. Spondylosis is visualized at multiple cervical levels. There is slight anterolisthesis of C4 on C5. Nasopharynx: There is swelling of the right posterior nasopharynx. Thyroid: There is a subcentimeter hypodense nodule within the right thyroid lobe anteriorly. CAROTID STENOSIS REFERENCE USING NASCET CRITERIA: % ICA stenosis = (1 - narrowest ICA diameter/diameter of distal cervical ICA) x 100. Mild - <50% stenosis. Moderate - 50-69% stenosis. Severe - 70-94% stenosis. Near occlusion - 95-99% stenosis. Occluded - 100% stenosis. IMPRESSION: 1. There is minimal atherosclerosis of the proximal bilateral internal carotid arteries, without significant stenosis or occlusion. 2. There is a mild decrease in caliber or stenosis of the proximal left vertebral artery. 3. There is a subcentimeter hypodense nodule within the right thyroid lobe anteriorly. 4. There is swelling of the right posterior nasopharynx. Clinical correlation is recommended. 5. Incidental/non-acute findings are described above.
== END 2018-02-25 01:58 | disposition home or self-care (01) ==
LOC: ED 20:52
DX: H53.2 Diplopia (principal); H53.009 Unspecified amblyopia, unspecified eye; G91.9 Hydrocephalus, unspecified
CPT/HCPCS: 70450; 70496; 70498; 80053; 85025; 85610; 96360; 99285; J7040; Q9967

== ENCOUNTER 2018-07-05 12:37 | Emergency (ER) | payer MEDICAID, OTHER ==
[2018-07-05 12:37] VITALS: BMI 26.6
--- NOTE | 2018-07-05 12:52 | ED PDOC ---
Arrival/HPI - General Chief Complaint: Back Pain Time Seen by Provider: 07/05/18 12:50 Historian: Patient - History of Present Illness Narrative History of Present Illness (Text): 07/05/18 12:55 Zane Boo is a 62 year old male whose past medical history includes left lower extremity DVT and hypertension, who presents to the emergency department after multiple hours standing during shift at [facility] earlier today. Patient denies any fevers, sudden onset, midspinal pain, radiation thereof, chills, chest pain, shortness of breath, abdominal pain, nausea, vomiting, diarrhea, neck pain, urinary symptoms, headache, dizziness, or any other complaint. PMD: Dr. Horne Time/Duration: 4-6 hours (presents after multiple hour shift standing at [facility] ) Symptom Onset: Gradual Symptom Course: Unchanged Quality: Aching, Other ("soreness") Activities at Onset: Light Context: Standing (multiple hour shift standing at [facility] earlier today) Past Medical History - Provider Review Nursing Documentation Reviewed: Yes - Infectious Disease Hx of Infectious Diseases: None - Tetanus Immunization Tetanus Immunization: Unknown - Cardiac Hx Cardiac Disorders: Yes Other/Comment: R leg DVT - Pulmonary Hx Respiratory Disorders: No - Neurological Hx Neurological Disorder: Yes Hx Dizziness: Yes Other/Comment: hydrocephalus - HEENT Hx HEENT Disorder: No - Renal Hx Renal Disorder: No - Endocrine/Metabolic Hx Endocrine Disorders: No - Hematological/Oncological Hx Blood Disorders: No - Integumentary Hx Dermatological Disorder: Yes - Musculoskeletal/Rheumatological Hx Musculoskeletal Disorders: Yes Hx Falls: Yes Other/Comment: RIGHT LEG DVT - Gastrointestinal Hx Gastrointestinal Disorders: Yes Hx Hemorrhoids: Yes - Genitourinary/Gynecological Hx Genitourinary Disorders: Yes (HYDROCOELE) - Psychiatric Hx Psychophysiologic Disorder: Yes Hx Substance Use: No - Surgical History Other/Comment: colonoscopy - Anesthesia Hx Anesthesia: Yes Hx Anesthesia Reactions: No Hx Malignant Hyperthermia: No - Suicidal Assessment Feels Threatened In Home Enviroment: No Family/Social History - Physician Review Nursing Documentation Reviewed: Yes Family/Social History: No Known Family HX Smoking Status: Never Smoked Hx Alcohol Use: Yes (occasional ) Hx Substance Use: No Allergies/Home Meds Allergies/Adverse Reactions: Allergies No Known Allergies Allergy (Verified 07/05/18 12:39) Home Medications: Home Meds Medication Instructions Recorded Confirmed Folic Acid 800 mg PO DAILY 01/21/17 07/05/18 Lisinopril [Zestril] 40 mg PO DAILY 09/02/17 07/05/18 Review of Systems - Physician Review All systems were reviewed & negative as marked: Yes - Review of Systems Constitutional: Normal. absent: Fevers Eyes: Normal ENT: Normal Respiratory: Normal. absent: SOB, Cough Cardiovascular: Normal. absent: Chest Pain Gastrointestinal: Normal. absent: Abdominal Pain, Diarrhea, Nausea, Vomiting Genitourinary Male: Normal. absent: Urinary Output Changes Musculoskeletal: Back Pain (dull bilateral para lumbar back ache), Other ( denies midspinal pain). absent: Normal Skin: Normal Neurological: Normal. absent: Headache, Dizziness Endocrine: Normal Hemo/Lymphatic: Normal Psychiatric: Normal Physical Exam Vital Signs Reviewed: Yes Vital Signs Temp Pulse Resp BP Pulse Ox 07/05/18 14:10 98.2 F 65 18 145/85 97 07/05/18 12:40 99.2 F 67 17 134/81 97 Temperature: Afebrile Blood Pressure: Normal Pulse: Regular Respiratory Rate: Normal Appearance: Positive for: Well-Appearing, Non-Toxic Pain Distress: Mild Mental Status: Positive for: Alert and Oriented X 3 - Systems Exam Head: Present: Atraumatic, Normocephalic Pupils: Present: PERRL Extroacular Muscles: Present: EOMI Conjunctiva: Present: Normal Mouth: Present: Moist Mucous Membranes Neck: Present: Normal Range of Motion Respiratory/Chest: Present: Clear to Auscultation, Good Air Exchange. No: Respiratory Distress, Accessory Muscle Use Cardiovascular: Present: Regular Rate and Rhythm, Normal S1, S2. No: Murmurs Abdomen: No: Tenderness, Distention, Peritoneal Signs Back: Present: Paraspinal Tenderness (mild paralumbar tenderness), Other (hyper tonicity paraspinal musculature ). No: Normal Inspection Upper Extremity: Present: Normal Inspection. No: Cyanosis, Edema Lower Extremity: Present: Normal Inspection. No: Edema Neurological: Present: GCS=15, CN II-XII Intact, Speech Normal Skin: Present: Warm, Dry, Normal Color. No: Rashes Psychiatric: Present: Alert, Oriented x 3, Normal Insight, Normal Concentration Medical Decision Making ED Course and Treatment: 07/05/18 12:51.. Impression: Zane Boo is a 62 year old male who presents to the emergency department for dull bilateral para lumbar backache. Javy paraspinal muscle spasm. Plan: -- Flexeril -- Toradol -- Reassess and disposition Progress Notes: serial neurological exams wnl , ambulatory and reporting relief s/p analgesics and muscle relaxants . 07/05/18 15:00 - Medication Orders Current Medication Orders: Discontinued Medications Cyclobenzaprine HCl (Flexeril) 10 mg PO STAT STA Stop: 07/05/18 13:28 Last Admin: 07/05/18 13:48 Dose: 10 mg Ketorolac Tromethamine (Toradol) 60 mg IM STAT STA Stop: 07/05/18 13:27 Last Admin: 07/05/18 13:48 Dose: 60 mg MAR Pain Assessment Document 07/05/18 13:48 LA (Rec: 07/05/18 13:49 LA [facility]) Pain Reassessment Is this a pain reassessment? No Sleep Is patient sleeping during reassessment? No Presence of Pain Presence of Pain Yes Pain Scale Used Pain Scale Used Numeric Location Left, Right or Bilateral Bilateral Pain Location Body Site Back Description Intensity of Pain at present 4 Pain Behavior Guarding IM Administration Charges Document 07/05/18 13:48 LA (Rec: 07/05/18 13:49 LA [id number]) Injection Site MAR Injection Site Left Gluteus Aaron Charges for Administration # of IM Administrations 1 - Scribe Statement The provider has reviewed the documentation as recorded by the Scribe Frida Frank All medical record entries made by the Scribe were at my direction and personally dictated by me. I have reviewed the chart and agree that the record accurately reflects my personal performance of the history, physical exam, medical decision making, and the department course for this patient. I have also personally directed, reviewed, and agree with the discharge instructions and disposition. Disposition/Present on Arrival - Present on Arrival Any Indicators Present on Arrival: Yes History of DVT/PE: Yes History of Uncontrolled Diabetes: No Urinary Catheter: No History of Decub. Ulcer: No History Surgical Site Infection Following: None - Disposition Have Diagnosis and Disposition been Completed?: Yes Diagnosis: Back muscle spasm Disposition: HOME/ ROUTINE Disposition Time: 15:03 Patient Plan: Discharge Condition: GOOD Print Language: ALBANIAN Additional Instructions: After taking the medication , apply warm compresses, to faclitate relaxation of your muscle spasm, then practice stretches to help ease your pain . 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 Prescriptions: Cyclobenzaprine [Cyclobenzaprine HCl] 10 mg PO Q8 PRN #20 tab PRN Reason: pain Ibuprofen [Motrin Tab] 600 mg PO Q6 PRN #40 tab PRN Reason: Pain, Moderate (4-7) Forms: [employer] (Korean)
[2018-07-05 14:52] VITALS: RESP 18; TEMP 98.2
[2018-07-05 15:20] VITALS: BP 137/84; PULSE 64; O2SAT 99
== END 2018-07-05 15:19 | disposition home or self-care (01) ==
LOC: ED 12:37
DX: M62.830 Muscle spasm of back (principal); I10 Essential (primary) hypertension; Z86.718 Personal history of other venous thrombosis and embolism
CPT/HCPCS: 96372; 99283; J1885

== ENCOUNTER 2018-12-07 13:34 | Emergency (ER) | payer SELFPAY ==
[2018-12-07 13:34] VITALS: BMI 26.6
[2018-12-07 13:45] VITALS: RESP 18
--- NOTE | 2018-12-07 13:59 | ED PDOC ---
Arrival/HPI - General Chief Complaint: Trauma Time Seen by Provider: 12/07/18 13:36 Historian: Patient - History of Present Illness Narrative History of Present Illness (Text): 12/07/18 13:57 63 year old male, whose past medical history includes left lower DVT and hypertension, who presents to the ED complaining s/p fall at work [employer]. Patient states he fell and hit his head on the ground. Patient notes head pain but denies any dizziness, chest pain prior to fall. Patient denies any LOC, current cp, back pain, neck pain, nausea, vomiting, dizziness, abdominal pain, or any other complaints. Time/Duration: Prior to Arrival Symptom Onset: Sudden Symptom Course: Unchanged Activities at Onset: Light Context: Home Past Medical History - Provider Review Nursing Documentation Reviewed: Yes - Infectious Disease Hx of Infectious Diseases: None - Tetanus Immunization Tetanus Immunization: Unknown - Cardiac Hx Cardiac Disorders: Yes Other/Comment: R leg DVT - Pulmonary Hx Respiratory Disorders: No - Neurological Hx Neurological Disorder: No Other/Comment: hydrocephalus w/o shunt - HEENT Hx HEENT Disorder: No - Renal Hx Renal Disorder: No - Endocrine/Metabolic Hx Endocrine Disorders: No - Hematological/Oncological Hx Blood Disorders: No - Integumentary Hx Dermatological Disorder: Yes - Musculoskeletal/Rheumatological Hx Musculoskeletal Disorders: Yes Hx Falls: Yes Other/Comment: RIGHT LEG DVT - Gastrointestinal Hx Gastrointestinal Disorders: Yes Hx Hemorrhoids: Yes - Genitourinary/Gynecological Hx Genitourinary Disorders: Yes (HYDROCOELE) - Psychiatric Hx Psychophysiologic Disorder: Yes Hx Substance Use: No - Surgical History Other/Comment: colonoscopy-POLYPS REMOVED - Anesthesia Hx Anesthesia: Yes Hx Anesthesia Reactions: No Hx Malignant Hyperthermia: No - Suicidal Assessment Feels Threatened In Home Enviroment: No Family/Social History - Physician Review Nursing Documentation Reviewed: Yes Family/Social History: Unknown Family HX Smoking Status: Never Smoked Hx Alcohol Use: Yes (occasional ) Frequency of alcohol use: Socially Hx Substance Use: No Allergies/Home Meds Allergies/Adverse Reactions: Allergies No Known Allergies Allergy (Verified 12/07/18 13:42) Home Medications: Home Meds Medication Instructions Recorded Confirmed Folic Acid 800 mg PO DAILY 01/21/17 12/07/18 Lisinopril [Zestril] 40 mg PO DAILY 09/02/17 12/07/18 Review of Systems - Physician Review All systems were reviewed & negative as marked: Yes - Review of Systems Constitutional: Normal Eyes: Normal ENT: Normal Respiratory: Normal. absent: SOB, Cough Cardiovascular: Normal. absent: Chest Pain Gastrointestinal: Normal. absent: Abdominal Pain, Diarrhea, Nausea, Vomiting Genitourinary Male: Normal. absent: Frequency, Hematuria Musculoskeletal: Normal Skin: Normal. absent: Rash Neurological: Headache (head pain s/p fall). absent: Dizziness Endocrine: Normal Hemo/Lymphatic: Normal Psychiatric: Normal Physical Exam - Physical Exam Narrative Physical Exam (Text): 12/07/18 14:03 Constitutional: No acute distress. Head: Normocephalic. Small hematoma/abrasion to forehead. Eyes: PERRL. EOMI. ENT: Moist mucous membranes. No malocclusion of jaw. Neck: Supple. Cardiovascular: Regular rate. Chest: No tenderness. Respiratory: Clear to auscultation bilaterally. GI: Soft. Nontender. Nondistended. Back: No CVA tenderness. Lipoma left back. Musculoskeletal: No tenderness or swelling of extremities. Skin: No rash. Neurologic: Alert, no focal deficit. Vital Signs Temp Pulse Resp BP Pulse Ox 12/07/18 13:39 98.2 F 79 18 155/85 H 98 Medical Decision Making ED Course and Treatment: 12/07/18 14:05 Impression: 63 year old male presents to the ED s/p fall at work [employer]. Plan: -- CT Head Progress Notes: CT Head: Unchanged hydrocephalus. No bleed or fracture. - Scribe Statement The provider has reviewed the documentation as recorded by the Lorneibe Annita Palomo All medical record entries made by the Lorneibelton were at my direction and personally dictated by me. I have reviewed the chart and agree that the record accurately reflects my personal performance of the history, physical exam, medical decision making, and the department course for this patient. I have also personally directed, reviewed, and agree with the discharge instructions and disposition. Disposition/Present on Arrival - Present on Arrival Any Indicators Present on Arrival: Yes History of DVT/PE: Yes History of Uncontrolled Diabetes: No Urinary Catheter: No History of Decub. Ulcer: No History Surgical Site Infection Following: None - Disposition Have Diagnosis and Disposition been Completed?: Yes Diagnosis: Head injury Disposition: HOME/ ROUTINE Disposition Time: 14:45 Patient Plan: Discharge Condition: STABLE Discharge Instructions (ExitCare): Minor Head Injury (DC) Referrals: Ty Gutierrez DO [Family Provider] - Follow up with primary Forms: [employer] ([place])
--- NOTE | 2018-12-07 14:42 | CT ---
Date of service: 12/07/2018 PROCEDURE: CT HEAD WITHOUT CONTRAST. HISTORY: fall COMPARISON: 02/24/2018 TECHNIQUE: Axial computed tomography images were obtained through the head/brain without intravenous contrast. Radiation dose: Total exam DLP = 992.48 mGy-cm. This CT exam was performed using one or more of the following dose reduction techniques: Automated exposure control, adjustment of the mA and/or kV according to patient size, and/or use of iterative reconstruction technique. FINDINGS: HEMORRHAGE: No intracranial hemorrhage. BRAIN: No mass effect or edema. No acute intracranial findings VENTRICLES: There is severe hydrocephalus which is unchanged CALVARIUM: Unremarkable. PARANASAL SINUSES: Unremarkable as visualized. No significant inflammatory changes. MASTOID AIR CELLS: Unremarkable as visualized. No inflammatory changes. OTHER FINDINGS: None. IMPRESSION: No change in severe hydrocephalus. No acute intracranial findings
[2018-12-07 15:05] VITALS: BP 118/72; PULSE 72; TEMP 98; O2SAT 97
== END 2018-12-07 15:05 | disposition home or self-care (01) ==
LOC: ED 13:34
DX: S09.90XA Unspecified injury of head, initial encounter (principal); W19.XXXA Unspecified fall, initial encounter; Y92.89 Other specified places as the place of occurrence of the external cause; Y99.0 Civilian activity done for income or pay